=== PATIENT | male | born 1990 | race Asian ===

== ENCOUNTER 2024-03-06 10:39 | Observation (INO) ==
[2024-03-06 14:15] LABS: ABS Lymphocytes 2.1 10^3/uL (1.0-4.8); ABS Monocytes 0.3 10^3/uL (0.0-1.1); ABS Neutrophils 3.4 10^3/uL (1.5-7.6); Eosinophil % 0.4 %; Hematocrit 28.9 % (38-53); Hemoglobin 9.7 g/dL (13.2-16.3); Lymphocyte % 35.2 %; Mean Corpuscular Hemoglobin 29.3 pg (27-33); Mean Corpuscular Hgb Conc 33.6 g/dL (31-36); Mean Corpuscular Volume 87.3 fL (80-97); Mean Platelet Volume 7.8 fL (7.5-11.2); Nucleated Red Blood Cells % 0.1 %/100WBC (0.0-0.8); Platelet Count 239 10^3/uL (150-450); Red Cell Distribution Width 13.1 % (12-17); White Blood Count 5.9 10^3/uL (3.6-10.2)
[2024-03-06 14:17] LABS: Activated Partial Thrombo Time 29.8 seconds (26.0-38.0); INR 0.98 (0.85-1.14)
[2024-03-06 14:59] LABS: Albumin 4.3 g/dL (3.2-5.2); Calcium 9.2 mg/dL (8.6-10.3); Creatinine, Serum 0.89 mg/dL (0.67-1.17); Globulin 2.2 g/dL (2-4); Potassium 4.1 mmol/L (3.5-5.0); Total Bilirubin 0.4 mg/dL (0.2-1.0); Total Protein 6.5 g/dL (6.4-8.9); eGFR CKD-EPI 117.5 (>60)
[2024-03-06] MEDS: Lactated Ringers 1000 ml BAG IV.FLUID IV ONE (15:55)
[2024-03-06] MEDS: Pantoprazole VIAL 40 MG VIAL IV ONE ×2 (15:55→16:42)
[2024-03-06] MEDS ORDERED: Ondansetron 4 mg VIAL 2 MG/ML 2 ml VIAL IV PRN (17:06)
[2024-03-06] MEDS ORDERED: Acetaminophen IV 1 GM/100ML 1,000 MG/100 ML BAG IV PRN (18:50)
[2024-03-06] MEDS ORDERED: Albuterol HFA INHALER 8 gm MDI INH PRN (19:01)
[2024-03-06] MEDS: Lactated Ringers 1000 ml BAG 1,000 ML IV SCH (20:14)
[2024-03-07] MEDS: Pantoprazole VIAL 40 MG VIAL IV SCH (04:29)
[2024-03-07 05:38] LABS: ABS Lymphocytes 1.7 10^3/uL (1.0-4.8); ABS Monocytes 0.3 10^3/uL (0.0-1.1); ABS Neutrophils 2.2 10^3/uL (1.5-7.6); Eosinophil % 1.2 %; Hematocrit 27.2 % (38-53); Lymphocyte % 39.8 %; Mean Corpuscular Hemoglobin 29.1 pg (27-33); Mean Corpuscular Hgb Conc 33.1 g/dL (31-36); Mean Corpuscular Volume 87.9 fL (80-97); Mean Platelet Volume 8.3 fL (7.5-11.2); Platelet Count 216 10^3/uL (150-450); Red Cell Distribution Width 13.1 % (12-17); White Blood Count 4.3 10^3/uL (3.6-10.2)
[2024-03-07 05:44] LABS: INR 1.09 (0.85-1.14)
[2024-03-07 05:54] LABS: Albumin 3.8 g/dL (3.2-5.2); Calcium 8.8 mg/dL (8.6-10.3); Creatinine, Serum 0.92 mg/dL (0.67-1.17); Globulin 1.9 g/dL (2-4); Total Bilirubin 0.6 mg/dL (0.2-1.0); Total Protein 5.7 g/dL (6.4-8.9); eGFR CKD-EPI 114.1 (>60)
[2024-03-07 10:51] LABS: Ferritin 39.7 ng/mL (24-336)
[2024-03-07] MEDS ORDERED: Midazolam 10 mg/10 ml VIAL 1 mg/ml 10 ml VIAL (10 mg) ONE (15:42)
[2024-03-07] MEDS ORDERED: fentaNYL 100 mcg/2 ml 50 MCG/ML VIAL ONE (15:42)
[2024-03-07] MEDS: Ferric Gluconate IV 250 MG in NS 0.9% 250 ml 200 ML IVPB SCH (21:34)
[2024-03-08 06:53] LABS: ABS Eosinophils 0.1 10^3/uL (0.0-0.5); ABS Lymphocytes 1.2 10^3/uL (1.0-4.8); ABS Monocytes 0.3 10^3/uL (0.0-1.1); ABS Neutrophils 2.2 10^3/uL (1.5-7.6); Eosinophil % 1.7 %; Hematocrit 27.5 % (38-53); Hemoglobin 9.3 g/dL (13.2-16.3); Lymphocyte % 31.7 %; Mean Corpuscular Hemoglobin 29.4 pg (27-33); Mean Corpuscular Hgb Conc 33.6 g/dL (31-36); Mean Corpuscular Volume 87.5 fL (80-97); Mean Platelet Volume 8.2 fL (7.5-11.2); Platelet Count 242 10^3/uL (150-450); Red Blood Count 3.15 10^6/uL (4.06-5.63); Red Cell Distribution Width 13.2 % (12-17); White Blood Count 3.9 10^3/uL (3.6-10.2)
[2024-03-08 07:06] LABS: Calcium 8.8 mg/dL (8.6-10.3); Creatinine, Serum 0.94 mg/dL (0.67-1.17); Potassium 4.2 mmol/L (3.5-5.0); eGFR CKD-EPI 111.1 (>60)
[2024-03-08 10:04] VITALS: BP 108/60
== END 2024-03-08 12:37 | disposition home or self-care (01) ==
LOC: ED 10:39 → EDHOLD 10:39 → MEDTELE 22:21
PROVIDERS: ADMIT Internal Medicine; ATTEND Internal Medicine